=== PATIENT | female | born 1975 | race African-American/Black ===

== ENCOUNTER 2017-10-23 03:57 | Emergency (ER) | payer OTHER ==
[~2017-10-23] VITALS: Ht 157.5 cm; Wt 84.5 kg
[~2017-10-23 03:57] MED LIST: HYDROCHLOROTH12.5 M3 PO; RISPERIDONE1 MG PO
[2017-10-23 04:03] VITALS: BP 152/106
== END 2017-10-23 05:42 | disposition left against medical advice (07) ==
LOC: EME 03:57
DX: S00.212A Abrasion of left eyelid and periocular area, initial encounter (principal); S40.022A Contusion of left upper arm, initial encounter; R51 Headache; R07.81 Pleurodynia; M79.602 Pain in left arm; Y04.0XXA Assault by unarmed brawl or fight, initial encounter; Y07.410 Brother, perpetrator of maltreatment and neglect; I10 Essential (primary) hypertension; Z53.29 Procedure and treatment not carried out because of patient's decision for other reasons
CPT/HCPCS: 80048; 85025; 90832; 99281; 99284; G0480